=== PATIENT | female | born 1995 | race Caucasian/White ===

== ENCOUNTER → 2019-11-01 18:22 | Outpatient (BNVA) | payer BC, SELFPAY | PROVIDERS: Family Provider Family Medicine; PCP Family Medicine; Visit Provider Nurse Practitioner Family | DX: J32.9 Chronic sinusitis, unspecified (principal) | CPT/HCPCS: 81025 ==

== ENCOUNTER → 2019-11-22 12:01 | Outpatient (BNVA) | payer BC, SELFPAY | PROVIDERS: Family Provider Family Medicine; PCP Family Medicine; Visit Provider Family Medicine | DX: R05 Cough (principal); J45.21 Mild intermittent asthma with (acute) exacerbation | CPT/HCPCS: 87804 ==

== ENCOUNTER 2020-03-29 23:34 | Emergency (ER) | payer BC, SELFPAY ==
[2020-03-29 23:44] VITALS: BP 137/94; PULSE 97; RESP 16; TEMP 36.7; O2SAT 98; BMI 22.1
== END 2020-03-30 00:43 | disposition left against medical advice (07) ==
LOC: ER 23:45
PROVIDERS: Emergency Provider Emergency Medicine; PCP Family Medicine
DX: Z53.21 Procedure and treatment not carried out due to patient leaving prior to being seen by health care provider (principal)
CPT/HCPCS: 99281

== ENCOUNTER 2020-03-30 11:52 | Emergency (ER) | payer BC, SELFPAY ==
[2020-03-30 11:57] VITALS: BP 122/64; PULSE 88; RESP 18; TEMP 36.8; O2SAT 99; BMI 22.1
--- NOTE | 2020-03-30 12:04 | ED_ITS ---
HPI - Extremity Problem General: Stated complaint: R FOOT INJURY Time Seen by Provider: 03/30/20 11:56 History of Present Illness: HPI Narrative: Patient had a door slammed on her foot yesterday Onset (ago): day(s) Pain Consistency: constant Location: right and lower extremity Severity scale (1-10): 4 Quality: aching Associated symptoms: Deny chest pain, fever(s) or rash Review of Systems Const: Denies: fever(s), chills or body aches Eyes: Denies: change in vision or blurry vision ENMT: Denies: throat pain or nasal congestion Card: Denies: chest pain or dyspnea on exertion Resp: Denies: dyspnea, productive cough or non-productive cough GI: Denies: abdominal pain, nausea or vomiting Musc: Reports: extremity pain (Right foot after having a door slammed on) Skin/Breast: Denies: rash Neuro: Denies: headache(s) Psych: Denies: anxiety or depression Dank/Lymph: Denies: easy bruising PFSH ED PFSH: Social History Smoking and tobacco status: light tobacco smoker Alcohol intake: never Female Reproductive History: Date of last menstrual period: 03/08/20 Physical Exam Const: COMMON NORMALS: no acute distress, average body habitus and patient oriented x3 HENMT: COMMON NORMALS: normocephalic HEAD & SCALP: normal to inspection and normocephalic FACE & SINUS: normal facial exam Eye: COMMON NORMALS: conjunctivae normal GENERAL EYE: appearance normal, both eyes and all related structures CONJUNCTIVA: Yes conjunctivae normal Neck/C-Spine: COMMON NORMALS: no JVD Chest: COMMONS NORMALS: normal inspection of the chest Resp: COMMON NORMALS: normal respiratory effort and clear to auscultation bilaterally AUSCULTATION: clear to auscultation bilaterally Cardio: COMMON NORMALS: no JVD, regular rate and regular rhythm RATE: regular rate RHYTHM: regular rhythm GI: COMMON NORMALS: Normal to inspection, nondistended, normoactive bowel sounds present Extremity: COMMON NORMALS: full ROM RIGHT LOWER EXTREMITY: Yes foot & digits (Abrasion to the lateral aspect of the right foot midsection with swelling bruising tenderness) Neuro: COMMON NORMALS: patient oriented x3 Discharge Plan Discharge Prescriptions: No Action albuterol sulfate 90 mcg/actuation HFA aerosol inhaler 2 puff INHALATION Q6H PRN (Reason: shortness of breath or wheezing) Qty: 18 RF: 0 Coding Level of Care Code ED Shuttle Route Vehicle Operator for Ivana Pleitez
[2020-03-30 12:06] VITALS: RESP 18
[2020-03-30] MEDS: tetanus-dipt-pertussis 0.5 mL SDV IM (12:16)
--- NOTE | 2020-03-30 12:48 | XRR_ITS ---
PROCEDURE INFORMATION: Exam: XR Right Foot Complete Exam date and time: 03/30/2020 1:05 PM Age: 25 years old Clinical indication: Injury or trauma; Fall; Initial encounter; Right; Injury date: Health And Safety Technician; Injury details: Abrasion RT lateral foot TECHNIQUE: Imaging protocol: XR Right foot. Views: 3 or more views. COMPARISON: No relevant prior studies available. FINDINGS: Bones/joints: Unremarkable Soft tissues: Normal. XR/XR foot RT min 3V* [id number] IMPRESSION: No acute findings.
[2020-03-30 13:10] VITALS: RESP 18; TEMP 36.8; O2SAT 99
== END 2020-03-30 13:11 | disposition home or self-care (01) ==
PROVIDERS: Emergency Provider Nurse Practitioner Family; PCP Family Medicine
DX: S99.921A Unspecified injury of right foot, initial encounter (principal); F17.210 Nicotine dependence, cigarettes, uncomplicated; Z23 Encounter for immunization; W23.0XXA Caught, crushed, jammed, or pinched between moving objects, initial encounter
CPT/HCPCS: 12345; 73630; 90471; 90715; 99281; 99283

== ENCOUNTER 2020-05-14 17:32 | Emergency (ER) | payer BC, SELFPAY ==
[2020-05-14 17:42] VITALS: BP 159/107; PULSE 88; RESP 18; TEMP 37.2; O2SAT 95; BMI 23.0
--- NOTE | 2020-05-14 17:54 | ED_ITS ---
HPI - Wound/Laceration General: Chief Complaint: Wound/Laceration Stated Complaint: leg lac Time Seen by Provider: 05/14/20 17:54 Source: patient Mode of arrival: ambulatory Limitations: no limitations History of Present Illness: HPI narrative: Patient is a 25-year-old female who presents to ED today with complaints of a laceration to her right leg. Patient tells me she was sharpening her kitchen knives when one of the knives slipped and cut her right anterior thigh. Patient's tetanus is up-to-date. Onset (ago): hour(s) Extremity Location: Right: thigh Place: home Patient tetanus UTD: Yes Context: accidental Associated symptoms: Reports no associated symptoms Review of Systems Musc: Reports: extremity pain Skin/Breast: Reports: other (laceration R thigh) Neuro: Denies: numbness in extremities or sensory changes PFSH ED PFSH: Social History Smoking and tobacco status: former smoker Alcohol intake: never Female Reproductive History: Date of last menstrual period: 03/08/20 Physical Exam Const: COMMON NORMALS: no acute distress, average body habitus, patient oriented x3, no limitations, healthy appearing, alert and well nourished Extremity: OTHER: 7.0 cm laceration to R anterior thigh; depth of approx 2-3mm Neuro: COMMON NORMALS: patient oriented x3, moves all extremities, no focal motor deficits, no sensory deficits noted and gait normal SENSORIUM/ORIENTATION: Yes alert Skin: OTHER: see extremity assessment Procedures Laceration Laceration 1: Site: lower extremity Side (If applicable): right Size (cm): 7.0 Description: linear Depth: simple, single layer Local Anesthetic: lidocaine 1% and with epi Amount of anesthesia used (mL): 5.0 Pre-repair: wound explored and irrigated extensively Skin layer closed with: nylon Size (cm): 4-0 Number of sutures: 11 Technique: simple, interrupted and running (one) Course Vital Signs: Vital signs: Vital Signs Temperature 99.0 F 05/14/20 17:42 Pulse Rate 88 05/14/20 17:42 Respiratory Rate 18 05/14/20 17:42 Blood Pressure 159/107 05/14/20 17:42 Pulse Oximetry 95 05/14/20 17:42 Discharge Plan Discharge Patient Disposition: Home Clinical Impression: Laceration of right thigh Qualifiers: Encounter type: initial encounter Qualified Code(s): S71.111A - Laceration without foreign body, right thigh, initial encounter Condition: Stable Prescriptions: No Action albuterol sulfate 90 mcg/actuation HFA aerosol inhaler 2 puff INHALATION Q6H PRN (Reason: shortness of breath or wheezing) Qty: 18 RF: 0 Discharge Orders: Discharge Order (Routine); Ordered 05/14/20 Ordered By: María Velásquez Referrals: Clinton Horne DO [Primary Care Provider] - Patient Instructions: Suture Care (ED), Laceration (ED) Activity Restrictions/Additional Instructions: Keep wound clean with warm soapy water several times daily. Monitor for signs of infection such as redness, swelling, drainage. Sutures need to be removed in 7 to 10 days. Coding Level of Care Code ED Emergency Vehicle Operations Instructor for Ivana Pleitez
[2020-05-14 18:59] VITALS: BP 120/75; PULSE 87; RESP 18; O2SAT 100
--- NOTE | 2020-05-23 17:44 | PC.NURSE ---
Sutures removed from patients right upper thigh.
== END 2020-05-14 18:59 | disposition home or self-care (01) ==
PROVIDERS: Emergency Provider Physician Assistant; PCP Family Medicine
DX: S71.111A Laceration without foreign body, right thigh, initial encounter (principal); Z87.891 Personal history of nicotine dependence; W26.0XXA Contact with knife, initial encounter
CPT/HCPCS: 12002; 12345; 99282

== ENCOUNTER → 2020-06-05 10:03 | Outpatient (BNVA) | payer BC, SELFPAY | PROVIDERS: PCP Family Medicine; Visit Provider Nurse Practitioner | DX: N39.0 Urinary tract infection, site not specified (principal); R30.0 Dysuria | CPT/HCPCS: 81000; 81025 ==

== ENCOUNTER 2020-07-03 22:33 | Emergency (ER) | payer BC, SELFPAY ==
[2020-07-03 22:34] VITALS: BP 123/70; PULSE 126; RESP 20; TEMP 36.7; O2SAT 96; BMI 22.1
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
== END 2020-07-03 22:51 | disposition home or self-care (01) ==
LOC: ER 22:41
PROVIDERS: Emergency Provider Emergency Medicine
DX: F10.920 Alcohol use, unspecified with intoxication, uncomplicated (principal); Z04.1 Encounter for examination and observation following transport accident; Z87.891 Personal history of nicotine dependence; V89.2XXA Person injured in unspecified motor-vehicle accident, traffic, initial encounter
CPT/HCPCS: 12345; 99281

== ENCOUNTER → 2020-07-05 15:19 | Outpatient (BNVA) | payer BC, SELFPAY | PROVIDERS: Visit Provider Nurse Practitioner Family | DX: M25.561 Pain in right knee (principal) | CPT/HCPCS: 73562 ==

== ENCOUNTER 2020-07-13 15:15 | Emergency (ER) | payer BC, SELFPAY ==
--- NOTE | 2020-07-13 15:22 | ECG_ITS ---
[facility] Test Date: 2020-07-13 Pat Name: Naresh Bravo Department: Room: Gender: Female Box Toe Maker: leonor : 1995 Requested By: Margot Lee I Order Number: [id number] Racquel MD: Karissa Nielsen M.D. Measurements Intervals [place] Rate: 105 P: 61 NM: 133 QRS: 52 QRSD: 93 T: 46 QT: 328 QTc: 434 Interpretive Statements SINUS TACHYCARDIA POSSIBLE LEFT ATRIAL ENLARGEMENT [-0.1mV P WAVE IN V1/V2] INCOMPLETE RIGHT BUNDLE BRANCH BLOCK [90+ ms QRS DURATION, TERMINAL R IN V1/V2, 40+ ms S IN I/aVL/V4/V5/V6] ABNORMAL RHYTHM ECG No previous ECG available for comparison Electronically Signed On 07-13-2020 17:02:11 CDT by Karissa Nielsen M.D. [email or web address] centerjobs-dial LLCoh[facility].[employer]/store/NU/[id number] f
[2020-07-13 15:25] VITALS: BP 103/66; PULSE 109; RESP 14; TEMP 36.5; O2SAT 95; BMI 20.1
[2020-07-13 15:49] LABS: Basophils # 0.1 10^3/uL (0.0-0.1); Basophils % 0.9 %; Eosinophils # 0.8 10^3/uL (0.0-0.8); Eosinophils % 7.2 %; Hematocrit 42.5 % (37.0-47.0); Hemoglobin 13.9 g/dL (11.5-15.3); Lymphocytes # 3.6 10^3/uL (0.8-4.8); Lymphocytes % 32.9 %; Mean Corpuscular HGB Conc 32.7 g/dL (30.0-36.0); Mean Corpuscular Hemoglobin 31.4 pg (28.0-34.0); Mean Corpuscular Volume 95.9 fL (81-99); Mean Platelet Volume 10.1 fL (7.4-10.4); Monocytes # 0.8 10^3/uL (0.2-0.9); Neutrophils # 5.61 10^3/uL (1.8-7.7); Neutrophils % 51.3 %; Nucleated Red Blood Cells % 0 %; Platelet Count 451 10^3/cmm (130-400); Red Blood Count 4.43 10^6/uL (4.1-5.3); Red Cell Distribution Width 13.1 % (12.1-15.1)
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
[2020-07-13 16:09] LABS: Alanine Aminotransferase 10 U/L (0-33); Albumin Level 4.6 g/dL (3.5-5.2); Alkaline Phosphatase 40 IU/L (35-105); Anion Gap 18.2 (5-19); Aspartate Amino Transferase 22 U/L (0-32); Blood Urea Nitrogen 9 mg/dL (6-20); Calcium 9.5 mg/dL (8.5-10.5); Carbon Dioxide 20 mmol/L (22-29); Chloride 105 mmol/L (98-107); Globulin 3.2 g/dL (1.3-4.6); Glucose 125 mg/dL (65-115); Osmolality Calculated 290 mOsm/kg (285-295); Potassium 3.2 mmol/L (3.5-5.1); Sodium 140 mmol/L (136-145); Total Bilirubin 0.7 mg/dL (0.15-1.2); Total Protein 7.8 g/dL (6.6-8.7)
[2020-07-13 16:17] LABS: Acetaminophen < 5.0 ug/mL (10-30); Salicylate < 0.3 mg/dL (3-10)
[2020-07-13 16:18] LABS: Alcohol Level 362 mg/dL (0-10)
[2020-07-13 16:19] LABS: HCG Qualitative Urine. Negative (Negative)
[2020-07-13 16:35] VITALS: BP 97/51; PULSE 94; RESP 18; O2SAT 94
--- NOTE | 2020-07-13 16:36 | PC.NURSE ---
Mom and 1:1 sitter in room Answered questions for mom Offer water / drinks
[2020-07-13 17:14] LABS: Add Urine Microscopic? NO
[2020-07-13 17:22] LABS: Bilirubin Urine Neg (Negative); Blood Urine Neg (Negative); Glucose Urine UA Norm (Normal); Ketones Urine Negative (Negative); Leukocyte Esterase Urine Negative (Negative); Nitrate Urine Negative (Negative); Protein Urine Neg (Negative); Specific Gravity, Urine 1.005 (1.005-1.030); Urine Appearance Clear (CLEAR); Urine Color Colorless (Yellow); Urobilinogen Urine Norm (Negative); pH Urine 5 (5-7)
[2020-07-13 17:24] LABS: Amphetamines Screen Urine Negative (Negative); Barbiturates Screen Urine Negative (Negative); Benzodiazepines Screen Urine Negative (Negative); Cocaine Screen Urine Negative (Negative); Opiate Screen Urine Negative (Negative); PCP Screen Urine Negative (Negative); THC Screen Urine Negative (Negative)
[2020-07-13 18:12] VITALS: BP 94/55; PULSE 97; RESP 20; O2SAT 97
[2020-07-13] MEDS: folic acid 1 MG, multivitamin inj 10 ML, thiamine 100 MG in sodium chloride 0.9% 1,000 ML 252.8 MG IV (18:12)
[2020-07-13 19:00] VITALS: BP 104/58; PULSE 93; RESP 19; O2SAT 97
--- NOTE | 2020-07-13 19:07 | PC.NURSE ---
1:1 sitter with patient
[2020-07-13 19:55] VITALS: BP 94/56; PULSE 88; RESP 20; O2SAT 97
--- NOTE | 2020-07-13 19:55 | PC.NURSE ---
1:1 sitter with patient
[2020-07-13 21:59] VITALS: BP 93/50; PULSE 101; RESP 16; TEMP 36.5; O2SAT 96
[2020-07-13 22:03] LABS: Alcohol Level 209 mg/dL (0-10)
== END 2020-07-13 21:59 | disposition home or self-care (01) ==
PROVIDERS: Emergency Provider Family Medicine
DX: F10.921 Alcohol use, unspecified with intoxication delirium (principal); Y90.7 Blood alcohol level of 200-239 mg/100 ml; Z87.891 Personal history of nicotine dependence
CPT/HCPCS: 12345; 80053; 80306; 80307; 81003; 81025; 85025; 93005; 96360; 96361; 99284; J3411; J3490; J7030

== ENCOUNTER → 2021-07-05 12:42 | Outpatient (BNVA) | payer BC, SELFPAY | PROVIDERS: Visit Provider Registered Nurse Neonatal Intensive Care | DX: Z20.822 Contact with and (suspected) exposure to COVID-19 (principal); J45.909 Unspecified asthma, uncomplicated | CPT/HCPCS: 87635 ==

== ENCOUNTER → 2022-03-03 14:21 | Outpatient (BNVA) | payer OTHER, SELFPAY | PROVIDERS: Visit Provider Family Medicine | DX: Z34.80 Encounter for supervision of other normal pregnancy, unspecified trimester (principal) | CPT/HCPCS: 81000; 81025; 84144; 84443; 84702; 85025; 86592; 86762; 87086; 87491; 87591; 87624; 87661; 87806 ==

== ENCOUNTER 2022-03-26 10:39 | Outpatient (CLI) | payer OTHER, MEDICAID, SELFPAY ==
--- NOTE | 2022-03-26 | US_ITS ---
WS: [id number] Exam: US OB <= 14 weeks fetus [id number] Date/Time of Exam: 03/26/2022 10:54 AM Reason For Exam: DATING : 4 Para: 1 Findings: Cervical length is 4.0 cm; closed. Single live intrauterine . [place] rump length measuring 5.9 cm. Yolk sac measures not applicable cm. Gestational sac measures 12w3d cm. cardiac tones 153 BPM. Estimated date of delivery 10/05/2022. Uterus measures 9.2 cm x 10.3 x cm 9.6 cm. Right ovary measures 2.8 cm x 2.7 cm x 1.8 cm. Left ovary measures 2.0 cm x 2.5 cm x 1.3 cm. US/US OB <= 14 weeks fetus [id number] IMPRESSION: 1. Viable intrauterine with single fetus estimated at 12 weeks 3 days gestational age. No obvious complication.
== END 2022-03-26 10:40 | disposition home or self-care (01) ==
LOC: RAD 10:41
PROVIDERS: PCP Family Medicine; Visit Provider Family Medicine
DX: Z34.81 Encounter for supervision of other normal pregnancy, first trimester (principal); Z3A.01 Less than 8 weeks gestation of pregnancy
CPT/HCPCS: 76801

== ENCOUNTER 2022-05-12 07:50 | Outpatient (CLI) | payer OTHER, MEDICAID, SELFPAY ==
--- NOTE | 2022-05-12 08:03 | US_ITS ---
WS: [id number] OBSTETRICAL ULTRASOUND COMPLETE HISTORY: ANATOMY COMPARISON: 03/26/2022 Single intrauterine gestation in variable presentation. Cervix is Closed and normal length. Cervical length is 4.4 cm. Normal amount of amniotic fluid surrounds the fetus. Placenta: Posterior, no previa or abruption. Placenta grade 1 Heart: 141 BPM. During real-time observation there was a distinct pause in the cardiac activity. 4 ch ambers are difficult to visualize. The RIGHT heart appears smaller than the LEFT. The LEFT atrium rosita ears enlarged. Very difficult evaluation of the outflow tracts and the four-chamber heart. In part th is is due to position of the fetus. Anatomy: Evaluation of the intracranial structures and spine suboptimal due to position of the fetus. No abnormality is identified. kidneys, stomach and urinary bladder are unremarkable. Abdominal wall, three-vessel cord and cord insertion site are normal. 4 extremities are present. profile: Unremarkable. Gender: Male. measurements: BPD = 4.5 cm = 19w4d HC = 17.0 cm = 19w4d AC = 14.4 cm = 19w5d FL = 3.2 cm = 20w0d EFW: 315 g. Biometry is internally concordant. AGA by ultrasound: 19w4d HANNAH by ultrasound: 10/02/2022 US/US OB >= 14 weeks fetus [id number] IMPRESSION: 1. Single intrauterine gestation of 19w4d with an HANANH of 10/02/2022. Appropria te growth since the prior ultrasound. 2. Cardiac arrhythmia is noted. There was a distinct pause in the cardiac acti vity during real-time observation. Also the cardiac chambers and outflow tracts are very poorly visualized which may be in part due to position of the fetus. The RIGHT heart chambers appear smaller than the LEFT. Recommend evaluation by maternal- medicine for a dedicated cardiac evaluation. 3. Remaining anatomy is limited due to position of the fetus but no additional abnormalities are identified. Notified Naresh Bashir MD at 05/12/2022 9:26 AM.
== END 2022-05-12 07:51 | disposition home or self-care (01) ==
LOC: RAD 07:52
PROVIDERS: PCP Family Medicine; Visit Provider Family Medicine
DX: Z36.89 Encounter for other specified antenatal screening (principal); Z3A.19 19 weeks gestation of pregnancy
CPT/HCPCS: 76805; 80307; 86803; 86850; 86900; 87340

== ENCOUNTER → 2022-06-29 10:29 | Outpatient (BNVA) | payer OTHER, SELFPAY | PROVIDERS: PCP Family Medicine; Visit Provider Family Medicine | DX: O09.92 Supervision of high risk pregnancy, unspecified, second trimester (principal); Z3A.00 Weeks of gestation of pregnancy not specified | CPT/HCPCS: 82950 ==

== ENCOUNTER → 2022-07-13 08:45 | Day surgery (SDC) | payer OTHER, MEDICAID, SELFPAY ==
[2022-07-13 09:02] VITALS: BP 109/64; PULSE 89; RESP 18; TEMP 36.3; O2SAT 89
[2022-07-13 10:31] VITALS: BP 109/64; PULSE 89; RESP 18; TEMP 36.3; O2SAT 99
== END ==
PROVIDERS: PCP Family Medicine; Visit Provider Family Medicine
DX: O26.899 Other specified pregnancy related conditions, unspecified trimester (principal); Z3A.00 Weeks of gestation of pregnancy not specified; Z67.91 Unspecified blood type, Rh negative
CPT/HCPCS: 36415; 36430; 86850; 86900; 90384; 96372

== ENCOUNTER → 2022-07-27 14:31 | Outpatient (BNVA) | payer OTHER, SELFPAY | PROVIDERS: PCP Family Medicine; Visit Provider Family Medicine | DX: O09.92 Supervision of high risk pregnancy, unspecified, second trimester (principal); Z3A.00 Weeks of gestation of pregnancy not specified; Z51.81 Encounter for therapeutic drug level monitoring | CPT/HCPCS: 85025 ==

== ENCOUNTER → 2022-08-10 12:51 | Outpatient (BNVA) | payer OTHER, SELFPAY | PROVIDERS: PCP Family Medicine; Visit Provider Family Medicine | DX: R93.89 Abnormal findings on diagnostic imaging of other specified body structures (principal); O36.5930 Maternal care for other known or suspected poor fetal growth, third trimester, not applicable or unspecified; Z3A.32 32 weeks gestation of pregnancy | CPT/HCPCS: 76816; 76819 ==

== ENCOUNTER → 2022-09-07 12:27 | Outpatient (BNVA) | payer OTHER, MEDICAID, SELFPAY | PROVIDERS: PCP Family Medicine; Visit Provider Family Medicine | DX: O28.3 Abnormal ultrasonic finding on antenatal screening of mother (principal); Z3A.35 35 weeks gestation of pregnancy | CPT/HCPCS: 76816; 76819 ==

== ENCOUNTER 2022-09-10 03:00 | Inpatient (IN) | payer OTHER, SELFPAY ==
[2022-09-10] VITALS (18 sets, daily range): BP systolic 108–133; BP diastolic 60–91; PULSE 63–90; RESP 14–17; TEMP 36.7; BMI 25.0
[2022-09-10] MEDS: lactated ringers 1,000 ML 999 ML IV (03:31)
[2022-09-10] MEDS: vancomycin 1,250 MG/250 ML PIGGYBACK 250 MG IV (03:32)
[2022-09-10 03:40] LABS: Basophils # 0.1 10^3/uL (0.0-0.1); Basophils % 0.4 %; Eosinophils # 0.1 10^3/uL (0.0-0.8); Eosinophils % 0.8 %; Hematocrit 37.7 % (37.0-47.0); Hemoglobin 12.9 g/dL (11.5-15.3); Lymphocytes # 2.6 10^3/uL (0.8-4.8); Lymphocytes % 16.4 %; Mean Corpuscular HGB Conc 34.2 g/dL (30.0-36.0); Mean Corpuscular Hemoglobin 31.9 pg (28.0-34.0); Mean Corpuscular Volume 93.3 fl (81-99); Mean Platelet Volume 11.4 fL (7.4-10.4); Monocytes # 0.8 10^3/uL (0.2-0.9); Monocytes % 5.1 %; Neutrophils # 12.06 10^3/uL (1.8-7.7); Neutrophils % 76.4 %; Nucleated Red Blood Cells % 0 %; Platelet Count 320 10^3/cmm (130-400); Red Blood Count 4.04 10^6/uL (4.1-5.3); Red Cell Distribution Width 13.3 % (12.1-15.1); White Blood Count 15.8 10^3/uL (4.0-10.0)
[2022-09-10 03:45] LABS: Actim Prom Positive
--- NOTE | 2022-09-10 03:50 | PM.HP ---
Providers/Chief Complaint Admitting Physician: Naresh Bashir MD Primary Care Provider: Naresh Bashir MD Chief Complaint: CONTRACTIONS History of Present Illness Naresh Bravo is a 27 year old @ 36.5 weeks by LMP c/w 12 wk US. Preg c/b THC use in 1st TM, h/o meth abuse, bipolar disorder, No custody of son, h/o 2 vessel cord with low weight and resuscitation needed for infant, h/o placental abruption, FOB with sickle cell trait and myotonic dystrophy The patient presented to labor and delivery on the morning of 09/10/2022 with concerns for leakage of fluid. She believes that she felt leaking fluid starting around midnight of the same evening. Upon presentation to L&D she was 5 cm dilated and donavan every 2 to 4 minutes. She had a category 1 tracing. She made rapid change and was admitted. Review of Systems Narrative: The patient denies any chest pain, shortness of breath, fever, nausea, vomiting, diarrhea, constipation, vaginal bleeding. Medications/Allergies Home Medications Medication Instructions Recorded Confirmed Last Taken Type albuterol sulfate 90 mcg/actuation 2 puff inhalation Q6H PRN 07/05/21 09/08/22 Unknown Rx aerosol inhaler (Ventolin HFA) shortness of breath or wheezing #8.5 grams doxylamine succinate 25 mg tablet 25 mg PO Q6H PRN Itching 05/14/22 09/08/22 Unknown History pyridoxine (vitamin B6) 50 mg 50 mg PO BID 05/14/22 09/08/22 Unknown History tablet (Vitamin B-6) vitamins no.154-ferrous 1 tab PO DAILY #30 tabs 07/06/22 09/08/22 Unknown Rx fumarate 27 mg-folic acid 1 mg tablet Electric Breast Pump #1 ea 08/10/22 09/08/22 Unknown Rx Allergies Allergy/AdvReac Type Severity Reaction Status Date / Time amoxicillin Allergy rash Verified 07/13/22 08:08 PFSH Acute PFSH: Family History Denies family history of Colon cancer Ovarian cancer Diabetes Heart disease Hypercholesteremia Breast cancer Hypertension Uterine cancer Thyroid disease Stroke Social History (Updated 09/10/22 @ 04:29 by Naresh Bashir MD) Substance/Drug Use: former Female Reproductive History: Date of last menstrual period: 07/01/20 : 4 Vitals/I&O/Wt Last Vital Signs Pulse 90 09/10/22 03:31 Resp 15 09/10/22 02:45 BP 130/91 09/10/22 03:46 Weight last 48 hrs Weight 141 lb Physical Exam Narrative: General: Alert and oriented x3, in pain with contractions Eyes: Pupils equal round and reactive to light and accommodation Mouth: Mucous membranes moist, pharynx non-erythematous Cardiac: Regular rate and rhythm without murmurs Lungs: Clear to auscultation bilaterally without wheezes, crackles or rhonchi Abdomen: Soft, non-tender, fundus consistent with gestational age Extremities: Trace edema in the bilateral lower extremities Data 09/10/22 03:15 A&P Assessment and plan (1) Supervision of normal intrauterine in multigravida: (2) Rh negative status during : (3) Spontaneous rupture of membranes: The patient had spontaneous rupture membranes and has made rapid change. heart tones are in a category 1 tracing. The patient's GBS swab was obtained at clinic on 09/08/2022. The results are currently pending. The patient is allergic to amoxicillin, so will be given vancomycin for GBS prophylaxis. It is unlikely that it will have sufficient time to treat. The patient requested an epidural, however again I doubt that we will have time to get it placed prior to delivery. We will start the IV fluid bolus just in case. The patient has a history of drug use and we will get a urine drug screen prior to giving any opiates. Proceed with intrapartum management of labor and delivery. Attestations Medical Necessity Statement*: The patient will be here for greater than 2 midnights due to routine intrapartum and management of labor and delivery. Coding Level of Care Code Acute Benzene Operator for Ivana Fwd Diagnoses Supervision of normal intrauterine in multigravida Z34.80 Rh negative status during O26.899; Z67.91 Spontaneous rupture of membranes
[2022-09-10] MEDS: oxytocin 30 UNIT/500 ML BAG 600 UNIT IV (04:09)
--- NOTE | 2022-09-10 04:33 | P.PCNOB_ITS ---
Delivery Note: Date of delivery: September 10, 2022 Pre-delivery diagnoses: 1. Intrauterine at 36.5 weeks gestation 2. THC use in first trimester 3. History of meth abuse 4. Bipolar disorder currently off of medication 5. No custody of son 6. Father baby with sickle cell trait and myotonic dystrophy 7. premature rupture of membranes Post-delivery diagnoses: 1. Intrauterine status post spontaneous vaginal delivery at 36.5 weeks gestation 2. THC use in first trimester 3. History of meth abuse 4. Bipolar disorder currently off of medication 5. No custody of son 6. Father baby with sickle cell trait and myotonic dystrophy 7. premature rupture of membranes 8. Delivery of healthy male weighing 6 pounds 1 ounce with Apgars of 8 and 9 Procedure: Spontaneous vaginal delivery Delivering Physician: Naresh Bashir MD Estimated blood loss (mL): 100 Findings: 1. Healthy infant male weighing 6 pounds 1 ounce with Apgars of 8 and 9 2. Intact placenta with central umbilical cord insertion site Pre-Delivery Course: Naresh Bravo is a 27 year old G4 now P2 status post spontaneous vaginal delivery @ 36.5 weeks by LMP c/w 12 wk US. Preg c/b THC use in 1st TM, h/o meth abuse, bipolar disorder, No custody of son, h/o 2 vessel cord with low weight and resuscitation needed for , h/o placental abruption, FOB with sickle cell trait and myotonic dystrophy, now with PPROM. The patient presented to labor and delivery on the morning of 09/10/2022 with concerns for leakage of fluid.? She believes that she felt leaking fluid starting around midnight of the same evening.? Upon presentation to L&D she was 5 cm dilated and donavan every 2 to 4 minutes and grossly ruptured.? She had a category 1 tracing.? She made rapid change and was admitted. The patient was given a dose of IV vancomycin for GBS prophylaxis because of GBS unknown status, however she did not receive the full dose prior to delivery. The patient made rapid change and was complete by 3:56 AM on 09/10/2022. Delivery: The patient began pushing at 3:58 AM on 09/10/2022. The patient pushed well and the infant delivered at 4:02 AM on 09/10/2022 in the OA position. There was no nuchal cord. The right shoulder was anterior shoulder and delivered with ease. The rest of the infant delivered without complication. The infant was crying immediately upon delivery. The infant's mouth and nose were bulb suctioned by myself and the infant was placed on the mother's chest where the nurses were waiting to care for him. The cord was clamped by myself after approximately 1 minute. The cord was cut by the infant's father. Cord blood was obtained. The cord was then drained of blood and traction was placed on umbilical cord. Uterine massage was carried out and the placenta delivered without complication at 4:07 AM on 09/10/2022. The placenta was noted to be intact with a central umbilical cord insertion site. The cervix was inspected and no lacerations were noted. The vaginal wall was inspected and there were 2 first-degree lacerations in the upper vaginal wall bilaterally. These were not bleeding and did not need suture repair. Currently both mother and infant are doing well. History History History 2 Term 1 1 Miscarriages/Ectopic 0 Living Children 2 Past Pregnancies Del. Date GA/Weeks Outcome Route Wt Inf Gender Labor Lgth Comp. Anesth esia Location 09/10/22 36 live - Vaginal 6 lb 1 oz Male 4 hours [facility] Delivery Date: 09/10/22 Last Updated by: Naresh Bashir MD No pain meds or epidural, PPROM A&P Assessment and plan (1) Spontaneous rupture of membranes: (2) Supervision of normal intrauterine in multigravida: (3) Rh negative status during : (4) premature rupture of membranes (PPROM) delivered, current hospitalization: Coding Level of Care Code Acute [employer] Finisher for Chg Fwd Diagnoses Spontaneous rupture of membranes Supervision of normal intrauterine in multigravida Z34.80 Rh negative status during O26.899; Z67.91 premature rupture of membranes (PPROM) delivered, current hospitalization O42.919
[2022-09-10] MEDS: lanolin oint 7 gm 1 APPLIC TOPICAL (05:29)
[2022-09-10] MEDS: benzocaine-menthol 78 gm Canister 1 SPRAY TOPICAL (05:29)
[2022-09-10 06:07] LABS: Amphetamines Screen Urine Positive (Negative); Barbiturates Screen Urine Negative (Negative); Benzodiazepines Screen Urine Negative (Negative); Cocaine Screen Urine Negative (Negative); Opiate Screen Urine Negative (Negative); PCP Screen Urine Negative (Negative); THC Screen Urine Positive (Negative)
[2022-09-10] MEDS: acetaminophen 325 mg Tablet 650 MG PO (07:39)
[2022-09-10] MEDS: prenatal vitamin Capsule 1 CAP PO (07:39)
[2022-09-10] MEDS: docusate sodium 100 mg Capsule PO ×2 (07:39→21:11)
[2022-09-10] MEDS: ibuprofen 800 mg tablet PO ×3 (07:39→21:11)
[2022-09-10 16:58] LABS: Hematocrit 35.3 % (37.0-47.0); Hemoglobin 11.8 g/dL (11.5-15.3); Mean Corpuscular HGB Conc 33.4 g/dL (30.0-36.0); Mean Corpuscular Hemoglobin 32.2 pg (28.0-34.0); Mean Corpuscular Volume 96.2 fl (81-99); Mean Platelet Volume 11.1 fL (7.4-10.4); Platelet Count 276 10^3/cmm (130-400); Red Blood Count 3.67 10^6/uL (4.1-5.3); Red Cell Distribution Width 13.3 % (12.1-15.1)
[2022-09-11 04:00] VITALS: BP 113/78; PULSE 82; RESP 15; TEMP 37.1
--- NOTE | 2022-09-11 08:37 | PM.PN ---
Subjective Subjective: The patient is feeling well today. She does have some low back pain associated with uterine cramping, however is well controlled. Her bleeding is decreasing well. She is ambulating, voiding, passing gas and tolerating food by mouth. Vitals/I&O/Wt Last Vital Signs Temp 98.8 F 09/11/22 04:00 Pulse 82 09/11/22 04:00 Resp 15 09/11/22 04:00 BP 113/78 09/11/22 04:00 O2 Del Method 09/10/22 16:30 Weight last 48 hrs Weight 141 lb Physical Exam Narrative: General: Alert and oriented x3 Cardiac: Regular rate and rhythm without murmurs Lungs: Clear to auscultation bilaterally without wheezes, crackles or rhonchi Abdomen: Soft, mild tenderness over uterus. The uterus is firm and 2 cm below the umbilicus. Extremities: Trace edema in the bilateral lower extremities Data 09/10/22 16:49 A&P Assessment and plan (1) Spontaneous vaginal delivery: The patient is doing well at this time. I discussed the findings of the urine drug screen and she stated that she did not mean to, however relapsed when her father went to the stress unit. The patient says that she will do whatever she has to including serial drug exams or what ever is requested by DFS. The patient says that she did not use throughout . I encouraged her to get involved with a program to help her through this process. The patient is doing well otherwise medically speaking. We will continue with routine care. Attestations Medical Necessity Statement*: The patient will be here for greater than 2 midnights due to routine intrapartum and management of labor and delivery. Coding Level of Care Code Acute Director Education for Ramonag Pricilla Diagnoses Spontaneous vaginal delivery O80
[2022-09-11 09:03] VITALS: BP 119/82; PULSE 56; RESP 18; TEMP 36.6
[2022-09-11] MEDS: prenatal vitamin Capsule 1 CAP PO (10:06)
[2022-09-11] MEDS: ibuprofen 800 mg tablet PO ×3 (10:06→21:38)
[2022-09-11] MEDS: docusate sodium 100 mg Capsule PO ×2 (10:07→18:00)
[2022-09-11 15:58] VITALS: BP 113/74; PULSE 66; RESP 18; TEMP 36.6; TEMP 36.7
[2022-09-11 21:35] VITALS: BP 123/83; PULSE 80; RESP 16; TEMP 36.7
[2022-09-12 04:55] VITALS: BP 118/79; PULSE 74; RESP 16
--- NOTE | 2022-09-12 08:48 | PM.DCS ---
Discharge Providers Date of Admission: 09/10/22 03:00 Date of Discharge: September 12, 2022 Attending Provider at Admission: Naresh Bashir MD Attending Provider at Discharge: Naresh Bashir MD Primary Care Provider: Naresh Bashir MD Diagnoses at Discharge Discharge Diagnosis (1) Spontaneous vaginal delivery: Status: Acute Other Information Additional DC diagnoses/information: 1.? Intrauterine status post spontaneous vaginal delivery at 36.5 weeks gestation 2.? THC use in first trimester 3.? History of meth abuse 4.? Bipolar disorder currently off of medication 5.? No custody of son 6.? Father baby with sickle cell trait and myotonic dystrophy 7.? premature rupture of membranes 8.? Delivery of healthy infant male weighing 6 pounds 1 ounce with Apgars of 8 and 9? Reason for Visit Reason for Visit: CONTRACTIONS Brief History: Naresh Bravo is a 27 year old G4 now P2 status post spontaneous vaginal delivery @ 36.5 weeks by LMP c/w 12 wk US. Preg c/b THC use in 1st TM, h/o meth abuse, bipolar disorder, No custody of son, h/o 2 vessel cord with low weight and resuscitation needed for , h/o placental abruption, FOB with sickle cell trait and myotonic dystrophy, now with PPROM. The patient presented to labor and delivery on the morning of 09/10/2022 with concerns for leakage of fluid.? She believes that she felt leaking fluid starting around midnight of the same evening.? Upon presentation to L&D she was 5 cm dilated and donavan every 2 to 4 minutes and grossly ruptured.? She had a category 1 tracing.? She made rapid change and was admitted. Hospital Course Hospital Course The patient was given a dose of IV vancomycin for GBS prophylaxis because of GBS unknown status, however she did not receive the full dose prior to delivery.? The patient made rapid change and was complete by 3:56 AM on 09/10/2022. The patient began pushing at 3:58 AM on 09/10/2022.? The patient pushed well and the infant delivered at 4:02 AM on 09/10/2022 in the OA position.? There was no nuchal cord.? The right shoulder was anterior shoulder and delivered with ease.? The rest of the infant delivered without complication.? The was crying immediately upon delivery.? The 's mouth and nose were bulb suctioned by myself and the was placed on the mother's chest where the nurses were waiting to care for him.? The cord was clamped by myself after approximately 1 minute.? The cord was cut by the infant's father.? Cord blood was obtained.? The cord was then drained of blood and traction was placed on umbilical cord.? Uterine massage was carried out and the placenta delivered without complication at 4:07 AM on 09/10/2022.? The placenta was noted to be intact with a central umbilical cord insertion site.? The cervix was inspected and no lacerations were noted.? The vaginal wall was inspected and there were 2 first-degree lacerations in the upper vaginal wall bilaterally.? These were not bleeding and did not need suture repair.? the patient has done well. She is ambulating, voiding, passing gas and tolerating food by mouth. She is showing no signs of complications. She was positive for methamphetamines on initial drug screen as well as THC. She says that she will spend the next 2 nights at a friend's house through a mormonism and then get checked in for rehab on Wednesday. Overall she is stable at this time. She does have a history of bipolar and did well on lithium. We did discuss potentially starting this in the future. We would not be able to start it at this point as she is breast-feeding. If she is having problems in the future, we will further evaluate. She would best be served by a psychiatrist. Physical Exam Narrative: General: Alert and oriented x3 Cardiac: Regular rate and rhythm without murmurs Lungs: Clear to auscultation bilaterally without wheezes, crackles or rhonchi Abdomen: Soft, mild tenderness over uterus. The uterus is firm and 2 cm below the umbilicus. Extremities: Trace edema in the bilateral lower extremities Discharge Data Studies Completed and Pending Pending at discharge Category Date Time Status Antibody Identification Routine Lab 09/10/22 03:15 Results Complete Crossmatch Routine Lab 09/11/22 13:20 Results Rho D Immune Globulin Routine Lab 09/11/22 13:20 Results Type and Screen Routine Lab 09/11/22 13:20 Results Laboratory Results WBC 16.0 10^3/uL (4.0-10.0) H 09/10/22 16:49 RBC 3.67 10^6/uL (4.1-5.3) L 09/10/22 16:49 Hgb 11.8 g/dL (11.5-15.3) 09/10/22 16:49 Hct 35.3 % (37.0-47.0) L 09/10/22 16:49 MCV 96.2 fl (81-99) 09/10/22 16:49 MCH 32.2 pg (28.0-34.0) 09/10/22 16:49 MCHC 33.4 g/dL (30.0-36.0) 09/10/22 16:49 RDW 13.3 % (12.1-15.1) 09/10/22 16:49 Plt Count 276 10^3/cmm (130-400) 09/10/22 16:49 MPV 11.1 fL (7.4-10.4) H 09/10/22 16:49 Neut % (Auto) 76.4 % 09/10/22 03:15 Lymph % (Auto) 16.4 % 09/10/22 03:15 Pratt % (Auto) 5.1 % 09/10/22 03:15 Eos % (Auto) 0.8 % 09/10/22 03:15 Baso % (Auto) 0.4 % 09/10/22 03:15 Neut # (Auto) 12.06 10^3/uL (1.8-7.7) H 09/10/22 03:15 Lymph # (Auto) 2.6 10^3/uL (0.8-4.8) 09/10/22 03:15 Pratt # (Auto) 0.8 10^3/uL (0.2-0.9) 09/10/22 03:15 Eos # (Auto) 0.1 10^3/uL (0.0-0.8) 09/10/22 03:15 Baso # (Auto) 0.1 10^3/uL (0.0-0.1) 09/10/22 03:15 Nucleated RBC % (auto) 0 % 09/10/22 03:15 Nucleated RBCs # 0.0 /100WBC 09/10/22 03:15 Insulin-like GF I Positive 09/10/22 03:20 Urine Opiates Screen Negative ng/mL (Negative) 09/10/22 05:45 Ur Barbiturates Screen Negative ng/mL (Negative) 09/10/22 05:45 Ur Phencyclidine Scrn Negative ng/mL (Negative) 09/10/22 05:45 Ur Amphetamines Screen Positive ng/mL (Negative) H 09/10/22 05:45 U Benzodiazepines Scrn Negative ng/mL (Negative) 09/10/22 05:45 Urine Cocaine Screen Negative ng/mL (Negative) 09/10/22 05:45 U Marijuana (THC) Screen Positive ng/mL (Negative) H 09/10/22 05:45 Blood Type A Negative 09/10/22 03:15 Rho(D) Type Negative 09/10/22 03:15 Antibody Screen Positive 09/10/22 03:15 Antibody Identification Anti-D 09/10/22 03:15 Screen Negative (Negative) 09/10/22 16:49 Vitals Last Vital Signs Temp 98.0 F 09/11/22 21:35 Pulse 74 09/12/22 04:55 Resp 16 09/12/22 04:55 BP 118/79 09/12/22 04:55 O2 Del Method 09/12/22 04:55 Discharge Plan Discharge Patient Disposition: Home Condition: Good Prescriptions: New ibuprofen 800 mg Tablet 800 mg PO TID Qty: 30 0RF Continued albuterol sulfate [Ventolin HFA] 90 mcg/actuation HFA aerosol inhaler 2 puff inhalation Q6H PRN (Reason: shortness of breath or wheezing) Qty: 8.5 0RF PNV no.154-iron fumarate-folic 27 mg iron- 1 mg tablet 1 tab PO DAILY Qty: 30 6RF Discontinued pyridoxine (vitamin B6) [Vitamin B-6] 50 mg tablet 50 mg PO BID doxylamine succinate 25 mg tablet 25 mg PO Q6H PRN (Reason: Itching) No Action (DME) Electric Breast Pump See Rx Instructions .Route .MEDSUPPLY Qty: 1 0RF Rx Instructions: As directed Discharge Orders: Discharge Order (Routine); Ordered 09/12/22 Ordered By: Naresh Bashir Referrals: Naresh Bashir MD [Primary Care Provider] - 6 Weeks Discharge Diet: Regular Discharge Activity: Resume usual activity Patient Instructions: Depression (DC), Bleeding (DC), Preeclampsia and Eclampsia After Delivery (GEN), Hemorrhage (DC), OB Discharge Report, OB Food/Drug Interaction Guide, OB Care at Home, Opioid Safety, OB [facility] - [facility], OB Vaginal Deliveries Activity Restrictions/Additional Instructions: Nothing per vagina for 6 weeks. Showers are recommended instead of baths for the first 6 weeks. Discharge Attestations Time Spent in Discharge Care*: greater than 30 min Quality Metrics Clinical Quality Measures [ No reported AMI, CVA or VTE this stay] Coding Level of Care Code Acute Chg FW DC note Diagnoses Spontaneous vaginal delivery O80
[2022-09-12 09:23] VITALS: BP 117/75; PULSE 75; RESP 15; TEMP 36.7; O2SAT 98
[2022-09-12] MEDS: prenatal vitamin Capsule 1 CAP PO (09:28)
[2022-09-12] MEDS: ibuprofen 800 mg tablet PO (09:28)
[2022-09-12] MEDS: docusate sodium 100 mg Capsule PO (09:28)
[2022-09-12 09:29] VITALS: BP 117/75; PULSE 75; RESP 15; TEMP 36.7; O2SAT 98
[2022-09-12 13:05] VITALS: BP 120/75; PULSE 73; RESP 16; TEMP 36.6
[2022-09-12 13:15] VITALS: BP 120/75; PULSE 73; RESP 16; TEMP 36.6
== END 2022-09-12 13:15 | disposition home or self-care (01) | DRG 806 ==
LOC: OPOB 03:22 → OBGYN 03:22
PROVIDERS: Admitting Provider Family Medicine; PCP Family Medicine; Visit Provider Family Medicine
DX: O99.324 Drug use complicating childbirth (principal); O36.0930 Maternal care for other rhesus isoimmunization, third trimester, not applicable or unspecified; Z37.0 Single live birth; F15.10 Other stimulant abuse, uncomplicated; F12.90 Cannabis use, unspecified, uncomplicated; O99.344 Other mental disorders complicating childbirth; O42.013 Preterm premature rupture of membranes, onset of labor within 24 hours of rupture, third trimester; Z3A.36 36 weeks gestation of pregnancy; F31.9 Bipolar disorder, unspecified; Z88.1 Allergy status to other antibiotic agents
CPT/HCPCS: 36415; 59025; 59409; 80306; 80503; 83986; 84112; 85025; 85027; 85460; 86850; 86870; 86900; 90384; 99211; J2590; J3370; J7120

== ENCOUNTER → 2023-12-29 13:02 | Outpatient (BNVA) | payer MEDICAID, SELFPAY | PROVIDERS: PCP Family Medicine; Visit Provider Family Medicine | DX: R30.0 Dysuria (principal) | CPT/HCPCS: 81000; 87086 ==

== ENCOUNTER → 2024-06-20 16:03 | Outpatient (BNVA) | payer MEDICAID, SELFPAY | PROVIDERS: PCP Family Medicine; Visit Provider Family Medicine | DX: Z34.90 Encounter for supervision of normal pregnancy, unspecified, unspecified trimester | CPT/HCPCS: 81025 ==

== ENCOUNTER 2024-07-07 11:30 | Outpatient (CLI) | payer MEDICAID, SELFPAY ==
--- NOTE | 2024-07-07 11:30 | US_ITS ---
WS: [id number] US pelv w/transvag [id number] HISTORY: Pelvic pain, enlarged uterus COMPARISON: 08/15/2018 Uterus: 6.8 cm x 4.8 cm x 3.9 cm. Normal size anteverted uterus. No fibroid or mass. Endometrium: 0.5 cm. Normal. Right ovary: 3.1 cm x 2.5 cm x 1.6 cm. Normal size and vascularity, no cystic or solid masses. Small follicles. Left ovary: 2.0 cm x 2.9 cm x 2.0 cm. Normal size and vascularity, no cystic or solid masses. Small f ollicles. Physiologic free fluid in the cul-de-sac. US/US pelv w/transvag [id number] IMPRESSION: 1. Normal size uterus. 2. Normal endometrium. 3. Small amount of free fluid in the cul-de-sac is probably physiologic.
== END 2024-07-07 11:32 | disposition home or self-care (01) ==
PROVIDERS: PCP Family Medicine; Visit Provider Family Medicine
DX: R10.2 Pelvic and perineal pain (principal)
CPT/HCPCS: 76830; 76856